=== PATIENT | female | born 1975 | race Caucasian/White ===

== ENCOUNTER 2023-05-14 11:31 | Emergency (ER) | payer MEDICAID ==
[~2023-05-14] VITALS: Ht 165.1 cm; Wt 76.0 kg
[2023-05-14 11:34] VITALS: TEMP 98.6
[2023-05-14] MEDS ORDERED: LIDOCAINE 5% TRANSDERMAL PATCH TD ONE (13:00)
[2023-05-14] MEDS ORDERED: BACLOFEN 10 MG TABLET PO ONE (13:00)
[2023-05-14] MEDS ORDERED: KETOROLAC TROMETHAMINE 30 MG/ML VIAL IM ONE (13:00)
[2023-05-14] MEDS ORDERED: BACL10TA PO (14:29)
[2023-05-14] MEDS ORDERED: IBUP-1492 PO (14:30)
[2023-05-14 14:53] VITALS: BP 128/68; PULSE 72; RESP 16
== END 2023-05-14 14:54 | disposition home or self-care (01) ==
LOC: EMS 11:32
DX: M54.2 Cervicalgia (principal); Z98.890 Other specified postprocedural states
CPT/HCPCS: 99285; 72125; 96372; J1885